=== PATIENT | male | born 1990 | race Caucasian/White ===

== ENCOUNTER 2018-10-08 00:02 | Emergency (ER) | payer SELFPAY ==
[~2018-10-08] VITALS: Ht 177.8 cm; Wt 95.3 kg
[~2018-10-08 00:02] MED LIST: AMOX-291 PO; HYDR1TAB12 PO
[2018-10-08 00:05] VITALS: BP 128/86
[2018-10-08] MEDS ORDERED: HYDROcodone/APAP 5/325 TABLET PO ONE (00:30)
--- NOTE | 2018-10-08 00:45 | NUR ---
THIS RN TO CHECK ON PT. ALL PT BELONGINGS GONE AND PT NOT IN ROOM. PT ELOPED. NOTIFIED.
== END 2018-10-08 00:47 | disposition left against medical advice (07) ==
LOC: ED 00:41
DX: K08.89 Other specified disorders of teeth and supporting structures (principal); F17.200 Nicotine dependence, unspecified, uncomplicated
CPT/HCPCS: 99283

== ENCOUNTER 2020-11-10 16:48 | Emergency (ER) | payer SELFPAY ==
[~2020-11-10] VITALS: Ht 177.8 cm; Wt 84.7 kg
[~2020-11-10 16:48] MED LIST changes: -HYDR1TAB12 PO; +HYDR1TAB13 PO
--- NOTE | 2020-11-10 17:25 | NUR ---
MD TATE COMPLETED, PT TO HAVE US TO IDENTIFY IF FB IS PRESENT IN CHEEK
--- NOTE | 2020-11-10 17:25 | NUR ---
Yung grant in ED - 11/10/20 at 1726 by GARTH MD TATE COMPLETED, PT TO HAVE US TO IDENTIFY IF FB IS PRESENT IN CHEEK
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
--- NOTE | 2020-11-10 17:51 | NUR ---
MOTHER, PAMELLA [phone]
--- NOTE | 2020-11-10 18:17 | NUR ---
SI MEAL TRAY AND ADDITIONAL WATER PROVIDED. DISCUSED POC WITH DR VALIENTE. PT TO BE ON HOLD. NEW MED ORDERS REC'D. PT REMAINS COOPERATIVE AND SEEMS LESS PARANOID AT THIS TIME. SITTER REMAINS AT DOORWAY WITH PT IN VIEW.
[2020-11-10 18:21] LABS: BASOPHILS % (AUTO) 1 % (0-1); EOSINOPHILS % (AUTO) 1 % (1-7); LYMPHOCYTES % (AUTO) 23 % (22-44); MEAN CORPUSCULAR HEMOGLOBIN 30.8 pg (27.5-34.5); MEAN CORPUSCULAR HGB CONC 34.5 g/dL (33.2-36.2); MEAN PLATELET VOLUME 7.1 fL (7.4-10.4); MONOCYTES % (AUTO) 9 % (2-9); NEUTROPHILS % (AUTO) 66 % (42-75); PLATELET COUNT 384 x10^3/uL (130-400); RED BLOOD COUNT 4.82 x10^6/uL (4.38-5.82); RED CELL DISTRIBUTION WIDTH 13.6 % (9.4-14.8)
[2020-11-10 18:22] LABS: MD NO
[2020-11-10 18:28] LABS: ANION GAP 8 mmol/L (5-15); CALCIUM 8.6 mg/dL (8.5-10.1); CHLORIDE 106 mmol/L (98-107)
[2020-11-10 18:29] LABS: SALICYLATE LEVEL < 1.7 mg/dL (2.8-20.0)
[2020-11-10] MEDS ORDERED: RISPERIDONE 1 MG TAB.RAPDIS PO ONE (18:30)
--- NOTE | 2020-11-10 18:37 | NUR ---
PT ATE 100% OF HIS DINNER, PT MED WITH RISPERIDONE NOTED W/O DIFFICULTY. SITTER AT DOORWAY WITH PT IN VIEW.
[2020-11-10 18:46] LABS: AMPHETAMINE SCREEN, URINE Negative (Negative); BARBITURATE SCREEN, URINE Negative (Negative); BENZODIAZEPINE SCREEN, URINE Negative (Negative); CANNABINOID SCREEN, URINE Negative (Negative); COCAINE SCREEN, URINE Negative (Negative); METHADONE SCREEN, URINE Negative (Negative)
[2020-11-10 18:47] LABS: OPIATE SCREEN, URINE Negative (Negative)
--- NOTE | 2020-11-10 19:12 | NUR ---
REPORT RECEIVED FROM PEPE EVANS. PATIENT RESTING IN BED AND AGREEABLE WITH PLAN. CALL MONTANO IN REACH. SITTER IN VIEW OF PATIENT. WILL CONTINUE TO MONITOR.
--- NOTE | 2020-11-10 20:37 | NUR ---
PATIENT RESTING IN BED IN NAD. CALL MONTANO IN REACH. SITTER IN VIEW OF PATIENT. ROOM REMAINS SAFETY ROOM
[2020-11-10] MEDS ORDERED: QUETIAPINE 25MG TABLET ONE (20:42)
[2020-11-10] MEDS: QUETIAPINE 25MG TABLET PO SCH (20:48)
--- NOTE | 2020-11-10 20:54 | NUR ---
VS OBTAIN AND STABLE. PATIENT CALM AND COOPERATIVE WITH CARE. REQUESTING "SWEETS". PUDDING AND 2 SMALL CHOCOLATE CANDIES PROVIDED TO PATIENT WITH ICE WATER IN STYROFOAM CUP. SEROQUEL ADMINISTERED. CALL MONTANO IN REACH. HOB LOWERED PER PATIENT PREFERENCE. WILL CONTINUE TO MONITOR. SITTER REMAINS IN VIEW OF PATIENT AND ROOM REMAINS SAFE
--- NOTE | 2020-11-10 21:00 | NUR ---
U declined referral, not appropriate insurance coverage.
--- NOTE | 2020-11-10 21:40 | NUR ---
PATIENT RESTING IN BED WITH HOB FLAT PER PATIENT PREFERENCE. CALM AND COOPERATIVE WITH CARE. SITTER IN VIEW OF PATIENT. CALL MONTANO IN REACH. WILL CONTINUE TO MONITOR.
--- NOTE | 2020-11-10 21:45 | NUR ---
TP RN: PACKET WAS FAXED TO [facility]. CONFIRMATION FAX RECEIVED.
--- NOTE | 2020-11-10 22:43 | NUR ---
Reyna from [facility] called and states patient is "out of medicaid days" and therefore denied at this time.
--- NOTE | 2020-11-10 22:59 | NUR ---
PATIENT RESTING IN BED WITH EYES CLOSED. LIGHTS DIMMED. SITTER IN VIEW OF PATIENT. NO INTERVENTIONS OR NEEDS AT THIS TIME. WAITING FOR PLACEMENT. WILL CONTINUE TO MONITOR.
--- NOTE | 2020-11-11 | NUR ---
PATIENT CALM WHILE LYING IN BED. SITTER IN VIEW OF PATIENT. CALL MONTANO IN REACH
--- NOTE | 2020-11-11 01:00 | NUR ---
PATIENT LYING IN BED IN NAD. CALL MONTANO IN REACH. SAFETY MAINTAINED. SITTER IN VIEW OF PATIENT. NO NEEDS AT THIS TIME
--- NOTE | 2020-11-11 02:03 | NUR ---
SLEEPING/RESTING IN BED. NO FURTHER NEEDS. SITTER IN VIEW OF PATIENT. SAFETY MAINTAINED. WILL CONTINUE TO MONITOR
--- NOTE | 2020-11-11 03:00 | NUR ---
PATIENT RESTING IN BED. LIGHTS DIMMED PER PATIENT REQUEST. PATIENT HAS NO FURTHER NEEDS AT THIS TIME. SITTER IN VIEW OF PATIENT. SAFETY MAINTAINED
--- NOTE | 2020-11-11 04:00 | NUR ---
PATIENT RESTING IN BED WITH EYES CLOSED. SITTER IN VIEW OF PATIENT. WILL CONTINUE TO MONITOR. ROOM REMAINS SAFE
--- NOTE | 2020-11-11 05:00 | NUR ---
PATIETN RESTING IN BED WITH EYES CLOSED. CALM. SITTER IN VIEW OF PATIENT. WILL CONTINUE TO MONITOR
--- NOTE | 2020-11-11 06:00 | NUR ---
PATIENT RESTING IN BED WITH EYES CLOSED. CALM. NO NEEDS AT THIS TIME. SITTER REMAINS IN VIEW OF PATIENT FOR SAFETY
--- NOTE | 2020-11-11 06:55 | NUR ---
REPORT GIVEN TO OZIEL EVANS
--- NOTE | 2020-11-11 07:00 | NUR ---
REPORT RECEIVED FROM TERESO EVANS. PT SLEEPING ON GURNEY W/ GARAGE DOORS DOWN AND SITTER OUTSIDE FOR SAFETY. CHEST RISE AND FALL OBSERVED.
--- NOTE | 2020-11-11 08:00 | NUR ---
PT SLEEPING ON GURNEY W/ GARAGE DOORS DOWN AND SITTER AT BEDSIDE FOR SAFETY. CHEST RISE AND FALL OBSERVED, NADN.
[2020-11-11] MEDS ORDERED: QUETIAPINE 25MG TABLET ONE (08:31)
[2020-11-11] MEDS: QUETIAPINE 25MG TABLET PO SCH (09:12)
--- NOTE | 2020-11-11 09:13 | NUR ---
PT HESITANT TO TAKE MEDS, BUT AGREED W/ MINIMAL EDUCATION. APPEARS TO BE PARANOID. COMPLIANT W/ VS. VSS, NADN. BREAKFAST TRAY PROVIDED TO PT. PT SITTING UP ON GURNEY W/ GARAGE DOORS DOWN AND SITTER OUTSIDE FOR SAFETY. DENIES SI/HI.
--- NOTE | 2020-11-11 10:00 | NUR ---
PT SLEEPING ON GURNEY W/ GARAGE DOORS DOWN AND SITTER AT BEDSIDE FOR SAFETY. CHEST RISE AND FALL OBSERVED, NADN.
--- NOTE | 2020-11-11 10:15 | NUR ---
MAUREEN HO AT BEDSIDE.
--- NOTE | 2020-11-11 10:49 | NUR ---
PER MAUREEN HO, SERDENA TBDC AND PT TO BE STARTED ON RISPERIDONE. PT MEDICAID LAPSED, REG HAS BEEN IN ROOM TO TRY AND RE-ENROLL. PLAN IS TO STABALIZE PT ON MEDS.
--- NOTE | 2020-11-11 11:04 | NUR ---
REPORT TO JENSEN AND MONA EVANS. PT RESTING ON GURNEY W/ GARAGE DOORS DOWN AND SITTER OUTSIDE FOR SAFETY. RESP EVEN AND UNLABORED, JENNIFFER.
--- NOTE | 2020-11-11 11:29 | NUR ---
PT SLEEPING IN BED WITH SITTER BY THE DOOR.
--- NOTE | 2020-11-11 11:30 | NUR ---
SPOKE WITH VIC REDDY TO CLARIFY RISPERIDONE DOSE, PER MAUREEN BENNETT TO GIVE ONE DOSE OF RISPERDAL 1MG PO ONE TIME NOW, AND CONTINUE TO SCHEDULED DOSE TONIGHT.
--- NOTE | 2020-11-11 11:36 | NUR ---
ORDERED SI DIET TRAY FOR LUNCH AND HOSPITAL BED FOR PT.
[2020-11-11] MEDS ORDERED: RISPERIDONE 1 MG TABLET PO ONE (13:00)
--- NOTE | 2020-11-11 13:02 | NUR ---
PT GIVEN LUNCH AND IS CURRENTLY EATING.
--- NOTE | 2020-11-11 15:25 | NUR ---
REPORT FROM NATHAN DUNN
--- NOTE | 2020-11-11 15:35 | NUR ---
LATE ENTRY DUE TO PT CARE. GAVE REPORT TO EMELIA EVANS
--- NOTE | 2020-11-11 17:54 | NUR ---
PT DINNER DELIVERED, NAD. ALL NEEDS MET AT THIS TIME.
--- NOTE | 2020-11-11 18:39 | NUR ---
PT GIVEN PEANUT BUTTER AND JELLY SANDWICH DUE TO BEING HUNGRY AGAIN.
--- NOTE | 2020-11-11 18:49 | NUR ---
BEDSIDE REPORT FROM JORGE LUIS RN, PT CARE TRANSFERRED AT THIS TIME. PT NAD, RESTING SUPINE ON HOSPITAL BED. DENIES ADDITIONAL QUESTIONS OR NEEDS, SITTER IN LINE OF SIGHT, ROOM SECURED, WCTM. L2K
[2020-11-11] MEDS: RISPERIDONE 1 MG TABLET PO SCH (20:32)
--- NOTE | 2020-11-11 20:41 | NUR ---
PT MEDICATED PER MAR, PROVIDED JUICE AND A FEW CRACKERS PER REQUEST, NAD, DENIES ADDITIONAL QUESTIONS OR NEEDS AT THIS TIME. SITTER IN LINE OF SIGHT, ROOM SECURED, WCTM.
--- NOTE | 2020-11-11 22:19 | NUR ---
pt resting in room, mom to visit at bs, nad, denies additional needs, mom brought in some clothes for when pt is transferred. mom and pt states that he has private insurance, [employer] that he signed up for a month prior. pt unsure of ID number for insurance, mom to follow up and see if she can obtained his number from his apartment. wctm. L2K
--- NOTE | 2020-11-12 00:16 | NUR ---
pt resting on hospital bed, nad, appears comfortable, eyes closed, even and unlabored respirations, room secured, sitter in line of sight. wctm. L2K
--- NOTE | 2020-11-12 01:39 | NUR ---
no change in condition. sitter in line of sight, room secured, tm.
--- NOTE | 2020-11-12 03:11 | NUR ---
pt resting on hospital bed, nad, appears comfortable, eyes closed, lights off for comfort, even and unlabored repsirations, sitter in line of sight, room secured, wctm. L2K
--- NOTE | 2020-11-12 04:38 | NUR ---
pt resting on hospital bed, nad, appears comfortable, room secured, sitter in line of sight, no other changes in condition, meal tray ordered, wctm. L2K
--- NOTE | 2020-11-12 06:40 | NUR ---
pt resting on cipriano, luis, no change in condition, sitter in line of sight, room secured. wctm.
--- NOTE | 2020-11-12 06:41 | NUR ---
bedside report to Robbin EVANS, pt care transferred at this time.
--- NOTE | 2020-11-12 07:04 | NUR ---
BEDSIDE REPORT RECEIVED FROM NATHAN HANNA FOR TRANSFER OF PATIENT CARE. PATIENT RESTING IN BED WITH EYES CLOSED, RESP EVEN AND UNLABORED, SUICIDE PRECAUTIONS IN PLACE, SITTER IN DOORWAY.
--- NOTE | 2020-11-12 08:04 | NUR ---
PATIENT RESTING IN HOSPITAL BED WITH EYES CLOSED, RESP EVEN AND UNLABORED, SUICIDE PRECAUTIONS IN PLACE, SITTER IN DOORWAY.
--- NOTE | 2020-11-12 08:18 | NUR ---
BREAKFAST TRAY PROVIDED.
--- NOTE | 2020-11-12 09:21 | NUR ---
PATIENT LAYING IN HOSPITAL BED, WHEN ASKED IF PATIENT IS STILL HALLUCINATING, PATIENT STATES "HOW DO I KNOW IF I'M HALLUCINATING? THE STUFF I SEE AND HEAR IS REAL, BUT PEOPLE TELL ME IT'S NOT." NO FURTHER INFORMATION ABLE TO BE OBTAINED REGARDING THIS FROM PATIENT. PATIENT DENIES SI/HI. JENNIFFER, SUICIDE PRECAUTIONS IN PLACE, SITTER IN DOORWAY.
--- NOTE | 2020-11-12 10:18 | NUR ---
PATIENT PACING AROUND ROOM, EATING CANDY, SUICIDE PRECAUTIONS IN PLACE, SITTER IN LINE OF SIGHT, FREQUENT ROUNDING IN PLACE.
[2020-11-12] MEDS ORDERED: RISPERIDONE 2 MG TABLET ONE ×2 (10:41→20:38)
[2020-11-12] MEDS: RISPERIDONE 1 MG TABLET PO SCH ×2 (10:44→20:58)
--- NOTE | 2020-11-12 10:47 | NUR ---
faxed updated facesheet (pt ins. self pay) and called and spoke with Sridhar at [facility] to make aware of this update.
--- NOTE | 2020-11-12 11:24 | NUR ---
LUNCH TRAY ORDERED.
--- NOTE | 2020-11-12 11:46 | NUR ---
VIC OSEI AT BEDSIDE FOR EVALUATION.
--- NOTE | 2020-11-12 12:10 | NUR ---
VIC OSEI STILL AT BEDSIDE FOR EVALUATION.
--- NOTE | 2020-11-12 12:21 | NUR ---
LUNCH TRAY PROVIDED TO PATIENT.
--- NOTE | 2020-11-12 12:26 | NUR ---
MOM AT BEDSIDE, SHE HAS INSURANCE INFORMATION AND WILL CALL TO VERIFY COVERAGE FOR PATIENT. TO LET RN KNOW ONCE INFORMATION HAS BEEN OBTAINED.
--- NOTE | 2020-11-12 13:13 | NUR ---
REPORT FROM MANDO
--- NOTE | 2020-11-12 14:30 | NUR ---
PT WALKING AROUND ROOM. SITTER PRESENT.
--- NOTE | 2020-11-12 15:30 | NUR ---
PT WATCHING TV, GIVEN BEVERAGES
--- NOTE | 2020-11-12 17:35 | NUR ---
PT SHOWERING, SUPPLIES PROVIDED. LINENS PROVIDED.
--- NOTE | 2020-11-12 18:01 | NUR ---
PT GIVEN MEAL TRAY
--- NOTE | 2020-11-12 18:55 | NUR ---
REPORT FROM NENA EVANS. PT EATING DINNER. PT HAS NO NEEDS AT THIS TIME. SITTER IN VIEW OF PT.
--- NOTE | 2020-11-12 18:56 | NUR ---
PT REPORT TO ADA
--- NOTE | 2020-11-12 20:54 | NUR ---
REPORT TO LEEANNE EVANS
--- NOTE | 2020-11-12 20:59 | NUR ---
1ST CONTACT C PT. RESTING ON CART, MED PER MAR, TOLERATED WELL. GIVEN JUCIE & CRACKERS. DENIES ANY NEEDS. PT CALM & COOPERATIVE. SITTER OUTSIDE OF ROOM. WILL CTM.
--- NOTE | 2020-11-12 22:00 | NUR ---
PT AWAKE & ALERT, CALM & COOPERATIVE. DENIES ANY NEEDS. SITTER OUTSIDE OF ROOM. WILL CTM.
--- NOTE | 2020-11-12 23:00 | NUR ---
PT SLEEPING ON HOSPITAL BED. RR EVEN, NON LABORED. SITTER OUTSIDE OF ROOM. WILL CTM.
--- NOTE | 2020-11-13 | NUR ---
PT SLEEPING ON HOSPITAL BED, RR EVEN, NON LABORED. NAD. SITTER OUTSIDE OF ROOM. WILL CTM.
--- NOTE | 2020-11-13 01:15 | NUR ---
PT SLEEPING ON HOSPITAL BED, RR EVEN NON LABORED, NAD. SITTER OUTSIDE OF ROOM, WILL CTM.
--- NOTE | 2020-11-13 02:13 | NUR ---
PT ASLEEP ON HOSPITAL BED. RR EVEN NON LABORED. NAD. SITTER OUTSIDE OF ROOM. WILL CTM.
--- NOTE | 2020-11-13 03:08 | NUR ---
PT SLEEPING ON HOSPITAL BED, RR EVEN NON LABORED. NAD. SITTER OUTSIDE OF ROOM. WILL CTM.
--- NOTE | 2020-11-13 05:02 | NUR ---
bedside report from Patricia RN, pt care transferred to this rn at this time. pt resting on gurney, appears comfortable, nad, room secured, sitter in line of sight, even and unlabored respirations, wctm.
--- NOTE | 2020-11-13 06:16 | NUR ---
pt resitng on gurney, nad, appears comfortable, eyes closed, even and unlabored respirations noted. room secured, sitter in line of sight, wctm.
--- NOTE | 2020-11-13 06:54 | NUR ---
report to rowdy ellis, pt care transferred at this time.
--- NOTE | 2020-11-13 07:10 | NUR ---
REPORT REC'D FROM SPORTS ATHLETIC TRAINER. PT RESTING IN BED WITH EYES CLOSED. SITTER AT DOOR.
[2020-11-13] MEDS: RISPERIDONE 1 MG TABLET PO SCH (08:36)
[2020-11-13 08:37] VITALS: BP 128/78
--- NOTE | 2020-11-13 08:38 | NUR ---
PT STATES HE IS STILL HEARING VOICES AND SEEING THINGS. STATES THEY ARE NOT TELLING HIM TO HARM ANYONE OR HIMSELF AT THIS TIME. BREAKFAST DELIVERED
--- NOTE | 2020-11-13 09:10 | NUR ---
REPORT CALLED TO GAYLE OLIVO, NATHAN WITH ACCEPTING DOCTOR DR. FRY
--- NOTE | 2020-11-13 10:39 | NUR ---
PT GIVEN PEANUT BUTTER JELLY SANDWICH. EXPLAINED HIS PLAN OF CARE
== END 2020-11-13 13:10 ==
LOC: ED 21:51
DX: F25.9 Schizoaffective disorder, unspecified (principal); F23 Brief psychotic disorder; F22 Delusional disorders; Z72.9 Problem related to lifestyle, unspecified
CPT/HCPCS: 36415; 80048; 80143; 80179; 80307; 80320; 82040; 85025; 99284; 99285; G0480